=== PATIENT | male | born 1940 | race Caucasian/White ===

== ENCOUNTER 2016-04-13 15:39 | Emergency (ER) | payer MEDICARE ==
[~2016-04-13] VITALS: Ht 180.3 cm; Wt 81.8 kg
[~2016-04-13 15:39] MED LIST: ASPI325T PO; METO25 PO; TAMS0.4C67 PO; ZOCO10TA PO
[2016-04-13 15:46] VITALS: BP 123/84; PULSE 54; RESP 16; TEMP 97.6; O2SAT 97
[2016-04-13] MEDS ORDERED: FISH120014 PO ×2 (16:10)
[2016-04-13] MEDS ORDERED: ACAI500C PO (16:10)
[2016-04-13] MEDS ORDERED: CALC500C2 CHEW (16:10)
[2016-04-13] MEDS ORDERED: ASPI325T PO (16:10)
[2016-04-13] MEDS ORDERED: RANI300T PO (16:10)
[2016-04-13] MEDS ORDERED: PLAV75TA29 PO (16:10)
[2016-04-13] MEDS ORDERED: GING550C PO (16:10)
[2016-04-13] MEDS ORDERED: METO25TA3 PO (16:10)
[2016-04-13] MEDS ORDERED: ZETI10TA5 PO (16:10)
[2016-04-13] MEDS ORDERED: HYDROmorphone HCL PF 1 MG/ML VIAL IV PUSH ONE (16:30)
[2016-04-13] MEDS ORDERED: SODIUM CHLOR 0.9% 1000 ML INJ 1,000 ML IV ONE (16:30)
[2016-04-13 16:40] LABS: AUTOMATED NEUTROPHIL # 4.8 TH/MM3 (1.8-7.7); BASOPHIL % 0.4 % (0.0-2.0); EOSINOPHIL # 0.2 TH/MM3 (0-0.4); EOSINOPHIL % 2.1 % (0.0-4.0); HEMATOCRIT 39.6 % (39.0-51.0); HEMO FLAGS DIFF FINAL; LYMPH % 22.1 % (9.0-44.0); LYMPHOCYTE # 1.6 TH/MM3 (1.0-4.8); MEAN CELL VOLUME 95.4 FL (80.0-100.0); MEAN CORPUSCULAR HGB CONC 33.6 % (32.0-36.0); MONO % 8.2 % (0.0-8.0); NEUT % 67.2 % (16.0-70.0); PLATELET COUNT 188 TH/MM3 (150-450); RED BLOOD COUNT 4.15 MIL/MM3 (4.50-5.90); RED CELL DISTRIBUTION WIDTH 12.7 % (11.6-17.2); WHITE BLOOD COUNT 7.2 TH/MM3 (4.0-11.0)
[2016-04-13 16:49] VITALS: BP 131/64; PULSE 52; RESP 18; O2SAT 97
[2016-04-13 16:51] LABS: CHLORIDE 108 MEQ/L (98-107); POTASSIUM 4.2 MEQ/L (3.5-5.1); SODIUM (NA) 142 MEQ/L (136-145)
[2016-04-13 16:54] LABS: APTT (PATIENT) 26.1 SEC (24.3-30.1); PROTHROMBIN TIME - PATIENT 10.7 SEC (9.8-11.6)
[2016-04-13 16:55] LABS: ANION GAP 7 MEQ/L (5-15); BICARBONATE 27.5 MEQ/L (21.0-32.0); BLOOD UREA NITROGEN 17 MG/DL (7-18)
[2016-04-13 16:57] LABS: ALT (GPT) 19 U/L (12-78)
[2016-04-13 16:58] LABS: AST (GOT) 16 U/L (15-37); GLOMERULAR FILTRATION RATE 75 ML/MIN (>89)
[2016-04-13 16:59] LABS: TOTAL BILIRUBIN ADULT 0.6 MG/DL (0.2-1.0)
[2016-04-13 17:01] LABS: ALKALINE PHOSPHATASE 48 U/L (45-117)
[2016-04-13] MEDS ORDERED: PIPERACIL-TAZO 3.375 GM PREMIX 50 ML IV ONE (17:15)
[2016-04-13 17:24] VITALS: BP 135/58; PULSE 53; RESP 18; TEMP 97.6; O2SAT 98
--- NOTE | 2016-04-13 17:25 | PD ---
HPI Chief Complaint: Lump, Cyst, Hernia Time Seen by Provider: 16:13 Travel History International Travel<30 days: No Contact w/Intl Traveler<30days: No Traveled to known affect area: No History of Present Illness HPI Patient is a 75-year-old male who comes in complaining of her hernia that he is not able to reduce. Patient has had a right inguinal hernia for the past year, but says that he is always able to push it back in. Today he was trying to lift something when he felt it pop out, and he was unable to push it back in. He complains of pain to the area only relieved by sitting in a certain way. He has seen Gen. 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 He denies nausea or vomiting. He has not had a bowel movement today, but says he did have one yesterday. He denies any fever or chills. PFSH Past Medical History Hx Anticoagulant Therapy: Yes (plavix) Blood Disorders: No Cancer: No Cardiovascular Problems: Yes (htn on meds ,[place] with 3 stents) High Cholesterol: Yes Chest Pain: Yes Coronary Artery Disease: Yes Diminished Hearing: Yes Endocrine: No Genitourinary: Yes Immune Disorder: No Musculoskeletal: No Neurologic: Yes Psychiatric: No Reproductive: No Immunizations Current: Yes Tetanus Vaccination: > 5 Years Influenza Vaccination: Yes Past Surgical History AICD: No Arteriovenous Shunt: No Coronary Artery Bypass Graft: Yes (03/[address] VIERA & 05/2007) Coronary Stent: Yes (5 PLACED) Insulin Pump: No Joint Replacement: No Pacemaker: No Social History Alcohol Use: No Tobacco Use: No Substance Use: No Allergies-Medications (Allergen,Severity, Reaction): Uncoded Allergies: cholesterol (Adverse Reaction, Unknown, nausea, 04/13/16) Reported Meds & Prescriptions Reported Meds & Active Scripts Active Reported Ranitidine (Ranitidine HCl) 300 Mg Tab 300 Mg PO HS Zetia (Ezetimibe) 10 Mg Tab 10 Mg PO DAILY Fish Oil (Stokes-3 Fatty Acids) 1,200 Mg Cap 2 Tab PO HS Metoprolol Tartrate 25 Mg Tab 25 Mg PO DAILY Fish Oil (Stokes-3 Fatty Acids) 1,200 Mg Cap 1 Tab PO DAILY Calcium (Calcium Carbonate-Cholecalciferol) 1,250-100 Mg-Unit Chew 1 Tab CHEW DAILY Acai Hyde Extract 500 Mg Cap 1,000 Mg PO DAILY Mini Root (Mini (Zingiber Officinalis)) 550 Mg Cap 2 Tab PO DAILY Plavix (Clopidogrel Bisulfate) 75 Mg Tab 75 Mg PO DAILY Aspirin 325 Mg Tab 325 Mg PO DAILY Review of Systems Except as stated in HPI: all other systems reviewed are Neg General / Constitutional: No: Fever, Chills HENT: No: Headaches, Lightheadedness Cardiovascular: No: Chest Pain or Discomfort Respiratory: No: Shortness of Breath Gastrointestinal: Positive: Abdominal Pain, No: Nausea, Vomiting Musculoskeletal: No: Edema Skin: No Change in Pigmentation Neurologic: No: Weakness, Dizziness Physical Exam Narrative GENERAL: Awake and alert, in no acute distress. SKIN: Warm and dry. HEAD: Atraumatic. Normocephalic. EYES: Pupils equal and round. No scleral icterus. ENT: Mucous membranes pink and moist. NECK: Trachea midline. No JVD. CARDIOVASCULAR: Regular rate and rhythm. No murmur appreciated. RESPIRATORY: No accessory muscle use. Clear to auscultation. Breath sounds equal bilaterally. GASTROINTESTINAL: Abdomen soft, non-tender, nondistended. : Right inguinal hernia, nonreproducible MUSCULOSKELETAL: No obvious deformities. No clubbing. No cyanosis. No edema. NEUROLOGICAL: Awake and alert. No obvious cranial nerve deficits. Motor grossly within normal limits. Normal speech. PSYCHIATRIC: Appropriate mood and affect; insight and judgment normal. Data Data Last Documented VS Vital Signs Date Time Temp Pulse Resp B/P Pulse Ox O2 Delivery O2 Flow Rate FiO2 04/13/16 19:25 51 18 169/75 99 Room Air 04/13/16 17:24 97.6 Orders Complete Blood Count With Diff (04/13/16 16:24) Comprehensive Metabolic Panel (04/13/16 16:24) Lactic Acid (04/13/16 16:24) Act Partial Throm Time (Ptt) (04/13/16 16:24) Prothrombin Time / Inr (Pt) (04/13/16 16:24) Iv Access Insert/Monitor (04/13/16 16:24) Sodium Chlor 0.9% 1000 Ml Inj (Ns 1000 M (1/5/17 16:30) Hydromorphone Pf Inj (Dilaudid Pf Inj) (04/13/16 16:30) Piperacil-Tazo 3.375 Gm Premix (Zosyn 3. (04/13/16 17:15) Labs Laboratory Tests Test 04/13/16 04/14/16 16:30 16:54 White Blood Count 7.2 TH/MM3 Red Blood Count 4.15 MIL/MM3 Hemoglobin 13.3 GM/DL Hematocrit 39.6 % Mean Corpuscular Volume 95.4 FL Mean Corpuscular Hemoglobin 32.0 PG Mean Corpuscular Hemoglobin 33.6 % Concent Red Cell Distribution Width 12.7 % Platelet Count 188 TH/MM3 Mean Platelet Volume 8.1 FL Neutrophils (%) (Auto) 67.2 % Lymphocytes (%) (Auto) 22.1 % Monocytes (%) (Auto) 8.2 % Eosinophils (%) (Auto) 2.1 % Basophils (%) (Auto) 0.4 % Neutrophils # (Auto) 4.8 TH/MM3 Lymphocytes # (Auto) 1.6 TH/MM3 Monocytes # (Auto) 0.6 TH/MM3 Eosinophils # (Auto) 0.2 TH/MM3 Basophils # (Auto) 0.0 TH/MM3 CBC Comment DIFF FINAL Differential Comment Prothrombin Time 10.7 SEC Prothromb Time International 1.0 RATIO Ratio Activated Partial 26.1 SEC Thromboplast Time Sodium Level 142 MEQ/L Potassium Level 4.2 MEQ/L Chloride Level 108 MEQ/L Carbon Dioxide Level 27.5 MEQ/L Anion Gap 7 MEQ/L Blood Urea Nitrogen 17 MG/DL Creatinine 0.98 MG/DL Estimat Glomerular Filtration 75 ML/MIN Rate Random Glucose 92 MG/DL Lactic Acid Level 1.0 mmol/L Calcium Level 8.7 MG/DL Total Bilirubin 0.6 MG/DL Aspartate Amino Transf 16 U/L (AST/SGOT) Alanine Aminotransferase 19 U/L (ALT/SGPT) Alkaline Phosphatase 48 U/L Total Protein 7.0 GM/DL Albumin 3.2 GM/DL Lab Scanned Report Lab Reports - Other [id number] [facility] Medical Decision Making Medical Screen Exam Complete: Yes Emergency Medical Condition: Yes Medical Record Reviewed: Yes Differential Diagnosis Incarcerated hernia versus strangulated hernia versus bowel obstruction Narrative Course Patient is a 75-year-old male who comes in with a right-sided inguinal hernia that he is unable to reduce. Exam shows hernia on the right side. IV established, labs sent. Patient given IV fluids, Dilaudid. Ice pack placed on the groin. I attempted to reduce the hernia. I was able to push the hernia out the testicular sac, however it was stuck in the pelvic region, and when no further pressure is applied filled the testicular sac again. Patient was completely relaxed during this and provided no resistance. It feels as though the defect may be higher up in the pelvis, and I am unable to push the bowels back through it. I spoke with Dr. Benitez for general surgery. He would like to see the patient in the emergency department to decide on next steps. He would like patient to receive antibiotics, given a dose of Zosyn. I spoke with Dr. Magallanes in the emergency department who has agreed to accept the patient as transfer. Patient will be transferred emergently via [facility] for further evaluation and management. Diagnosis Primary Impression: Incarcerated hernia Condition: Stable Faina Peoples MD Apr 13, 2016 17:25
--- NOTE | 2016-04-13 17:25 | HHI.PR ---
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
[2016-04-13 19:25] VITALS: BP 169/75; PULSE 51; RESP 18; O2SAT 99
--- NOTE | 2016-04-13 19:57 | PD ---
Physical Exam Narrative Patient was seen by the physician at [facility] and transferred to [facility] ED to see the surgeon. Patient has incarcerated right inguinal hernia. Data Data Last Documented VS Vital Signs Date Time Temp Pulse Resp B/P Pulse Ox O2 Delivery O2 Flow Rate FiO2 04/13/16 19:25 51 18 169/75 99 Room Air 04/13/16 17:24 97.6 Orders Complete Blood Count With Diff (04/13/16 16:24) Comprehensive Metabolic Panel (04/13/16 16:24) Lactic Acid (04/13/16 16:24) Act Partial Throm Time (Ptt) (04/13/16 16:24) Prothrombin Time / Inr (Pt) (04/13/16 16:24) Iv Access Insert/Monitor (04/13/16 16:24) Sodium Chlor 0.9% 1000 Ml Inj (Ns 1000 M (04/13/16 16:30) Hydromorphone Pf Inj (Dilaudid Pf Inj) (04/13/16 16:30) Piperacil-Tazo 3.375 Gm Premix (Zosyn 3. (04/13/16 17:15) Labs Laboratory Tests Test 04/13/16 16:30 White Blood Count 7.2 TH/MM3 Red Blood Count 4.15 MIL/MM3 Hemoglobin 13.3 GM/DL Hematocrit 39.6 % Mean Corpuscular Volume 95.4 FL Mean Corpuscular Hemoglobin 32.0 PG Mean Corpuscular Hemoglobin 33.6 % Concent Red Cell Distribution Width 12.7 % Platelet Count 188 TH/MM3 Mean Platelet Volume 8.1 FL Neutrophils (%) (Auto) 67.2 % Lymphocytes (%) (Auto) 22.1 % Monocytes (%) (Auto) 8.2 % Eosinophils (%) (Auto) 2.1 % Basophils (%) (Auto) 0.4 % Neutrophils # (Auto) 4.8 TH/MM3 Lymphocytes # (Auto) 1.6 TH/MM3 Monocytes # (Auto) 0.6 TH/MM3 Eosinophils # (Auto) 0.2 TH/MM3 Basophils # (Auto) 0.0 TH/MM3 CBC Comment DIFF FINAL Differential Comment Prothrombin Time 10.7 SEC Prothromb Time International 1.0 RATIO Ratio Activated Partial 26.1 SEC Thromboplast Time Sodium Level 142 MEQ/L Potassium Level 4.2 MEQ/L Chloride Level 108 MEQ/L Carbon Dioxide Level 27.5 MEQ/L Anion Gap 7 MEQ/L Blood Urea Nitrogen 17 MG/DL Creatinine 0.98 MG/DL Estimat Glomerular Filtration 75 ML/MIN Rate Random Glucose 92 MG/DL Lactic Acid Level 1.0 mmol/L Calcium Level 8.7 MG/DL Total Bilirubin 0.6 MG/DL Aspartate Amino Transf 16 U/L (AST/SGOT) Alanine Aminotransferase 19 U/L (ALT/SGPT) Alkaline Phosphatase 48 U/L Total Protein 7.0 GM/DL Albumin 3.2 GM/DL [facility] Supervised Visit with SONNY: No Procedures Procedure Narrative Patient was put in Trendelenburg. Gentle pressure applied to the right inguinal area. The incarcerated right inguinal hernia was reduced. Dr. Benitez came by and finished the procedure. Diagnosis Primary Impression: Inguinal hernia Qualified Code: K40.91 - Unilateral recurrent inguinal hernia without obstruction or gangrene Patient Instructions: General Instructions Additional Instruction: Avoid heavy lifting. Follow-up with surgeon. Return immediately if unable to reduce the hernia. Med/Other Pt SpecificInfo: No Change to Meds Disposition: 01 DISCHARGE HOME Condition: Stable Nik Magallanes MD Apr 13, 2016 19:57
== END 2016-04-13 21:09 | disposition home or self-care (01) ==
LOC: PHED 15:39 → NEPC 21:09
DX: K40.31 Unilateral inguinal hernia, with obstruction, without gangrene, recurrent (principal); I10 Essential (primary) hypertension; E78.00 Pure hypercholesterolemia, unspecified; I25.10 Atherosclerotic heart disease of native coronary artery without angina pectoris; Z95.5 Presence of coronary angioplasty implant and graft; Z79.01 Long term (current) use of anticoagulants
CPT/HCPCS: 80053; 83605; 85025; 85610; 85730; 96361; 96374; 96375; 99284; J1170; J2543; J7030; 99281

== ENCOUNTER → 2016-07-21 | Day surgery (SDC) | payer MEDICARE ==
[~2016-07-21] MED LIST changes: +ACAI500C PO; +ACETAMINOPHEN 1000 MG/100 ML VIAL IV ONE; +BUPIVACAINE LIPOSOME PF 1.3% 20 ML VIAL ONE; +CALC500C2 CHEW; +FISH120014 PO; +GING550C PO; +LACTATED RINGER'S 1000 ML INJ 1,000 ML ONE; -METO25 PO; +METO25TA3 PO; +MIDAZOLAM HCL 2 MG/2 ML VIAL ONE; +ONDANSETRON HCL 4 MG/2 ML VIAL IV PUSH ONE; +PLAV75TA29 PO; +PROPOFOL 200 MG/20 ML AMP IV ONE; +RANI300T PO; -TAMS0.4C67 PO; +ZETI10TA5 PO; -ZOCO10TA PO; +ceFAZolin 2 GM PREMIX 50 ML ONE; +oxyCODONE/ACETAMINOPHEN 5 MG/325 MG TAB ONE
--- NOTE | 2016-07-22 13:19 | MP ---
cc: SUSANNAPHOEBEY DATE OF SURGERY: 07/21/2016 PREOPERATIVE DIAGNOSIS: Right inguinal hernia. POSTOPERATIVE DIAGNOSIS Right inguinal hernia. PROCEDURE Repair of right inguinal hernia with Pro Project Coach mesh. SURGEON Susanna DIRECTOR OF INSTRUCTIONAL TECHNOLOGY: Nicholas Zacarias MS3. ANESTHESIA General OPERATIVE FINDINGS The patient was found to have a very large indirect inguinal hernia sac which obliterated much of the inguinal floor and had also disrupted the external oblique muscle. There was no evidence of incarcerated viscera. OPERATIVE PROCEDURE The patient brought to the operating room after satisfactory general anesthesia been obtained the abdomen was prepped and draped in the usual sterile fashion. Exparel was used to infiltrate the skin for local anesthesia. A transverse right inguinal decision was made, carried out sharply through the subcutaneous tissue with cautery being is hemostasis. The incision was deepened to the external oblique fascia which was identified and the spermatic cord was seen to be present along with the hernia sac through the external oblique. The external oblique was opened laterally and the underside cleaned by blunt dissection. The spermatic cord was then isolated with a Arlet drain in the hernia sac dissected free. It was seen to be quite large and extended down into the scrotum. The sac was then divided at its neck with the distal sac being left in place. The proximal sac was dissected free from the cord structures down to the internal ring where it was circumferentially scored. It was then closed with a pursestring suture of 3-0 Vicryl. It was reduced within the properitoneal space without problem. The remainder of the inguinal floor was cleaned of adventitial tissue, after which the inguinal floor was closed with interrupted 0 Vicryl sutures being brought between the internal oblique muscle and fascia and the shelving edge of the inguinal ligament. The internal ring was reconstructed in this manner. After closing the inguinal floor piece of Progrip mesh was cut to the appropriate shape and secured anterior to the repair by pressing its posterior Vicryl hooks into the surrounding tissues. Coverage was made sure be well lateral to the internal ring as well as down to the pubis. The mesh laid well without any kinking. It was then affixed to the pubic bone with a zero Prolene. Once again the mesh was checked and found to be satisfactory. The testicle was returned to its [place] location by gentle traction. Hemostasis was checked for found be satisfactory. The external oblique fascia was then closed with a running 3-0 Vicryl suture. Subcutaneous tissue was closed with interrupted 3-0 Vicryl sutures. The area was further infiltrated with Exparel after which the skin was closed with interrupted 4-0 Monocryl subcuticular stitches. Steri-Strips were applied and the patient was then taken from the operating room, in satisfactory condition, having tolerated procedure well. Estimated blood loss was less than five ML. The instrument, sponge, needle counts were reported as being correct x2 at the end of the procedure. MD OLIVE Recinos/glory /9:51 AM /1:10 PM
== END | disposition home or self-care (01) ==
LOC: ESDC 06:44
PROVIDERS: ATTEND Surgery
DX: K40.90 Unilateral inguinal hernia, without obstruction or gangrene, not specified as recurrent (principal)
CPT/HCPCS: 00830; 49505; C1781; C9290; J0131; J0690; J2250; J2405; J3010; J7120